=== PATIENT | female | born 1970 | race Caucasian/White ===

== ENCOUNTER 2023-05-11 12:44 | Outpatient (RCR) | payer OTHER, SELFPAY | END 2023-06-30 11:38 | disposition home or self-care (01) | LOC: PT 12:44 | PROVIDERS: PCP Nurse Practitioner Family; Visit Provider Nurse Practitioner Family | DX: M43.16 Spondylolisthesis, lumbar region (principal); R29.3 Abnormal posture; R26.89 Other abnormalities of gait and mobility; R26.9 Unspecified abnormalities of gait and mobility | CPT/HCPCS: 97113; 97161 ==